=== PATIENT | male | born 1970 | race Caucasian/White ===

== ENCOUNTER 2016-12-24 14:49 | Emergency (ER) | payer OTHER | END 2016-12-24 16:05 | disposition home or self-care (01) | LOC: ER 14:49 | DX: S22.32XA Fracture of one rib, left side, initial encounter for closed fracture (principal); S52.255A Nondisplaced comminuted fracture of shaft of ulna, left arm, initial encounter for closed fracture; K21.9 Gastro-esophageal reflux disease without esophagitis; F31.9 Bipolar disorder, unspecified; J45.909 Unspecified asthma, uncomplicated; F17.210 Nicotine dependence, cigarettes, uncomplicated; Z79.899 Other long term (current) drug therapy; Z88.5 Allergy status to narcotic agent; Z88.6 Allergy status to analgesic agent; Y08.02XA Assault by strike by baseball bat, initial encounter ==